=== PATIENT | male | born 1950 | race Caucasian/White ===

== ENCOUNTER 2018-08-27 19:16 | Emergency (ER) | payer MEDICARE ==
[2018-08-27] MEDS ORDERED: BABY ASPIRIN 81 MG CHEW PO ONE (19:30)
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
[2018-08-27] MEDS ORDERED: BABY ASPIRIN 81 MG CHEW ONE (19:37)
[2018-08-27 19:56] LABS: BASOPHIL % 0.7 % (0.0-0.4); Basophil (Absolute #) 0.09 (0-0.4); Eosinophil % 4.2 % (0.00-5.0); Eosinophil (Absolute #) 0.51 (0-0.5); Granulocyte Absolute (ANC) 7.36 (1.4-6.9); Granulocytes % 60.9 % (36.0-66.0); Hematocrit 38.7 % (42-50); Hemoglobin 12.5 gm/dl (12.5-18.0); Lymphocyte (Absolute #) 3.32 (1.0-4.6); Lymphocytes % 27.5 % (24.0-44.0); Mean Cell Volume 89.2 fl (78-100); Mean Corpuscular Hemoglobin 28.8 pg (26-32); Mean Corpuscular Hgb Concent. 32.3 g/dl (32-36); Mean Platelet Volume 9.7 fl (6-9.5); Monocyte (Absolute #) 0.81 (0.0-1.3); Monocytes % 6.7 % (0.0-12.0); Platelet Count 249 K/mm3 (150-450); Red Blood Count 4.34 M/mm3 (4.1-5.6); Red Cell Distribution Width 14.4 % (11.5-14.0); White Blood Count 12.1 K/mm3 (4.0-10.5)
[2018-08-27 20:02] LABS: ALBUMIN 4.1 g/dL (3.5-5.0); ALKALINE PHOSPHATASE 29 U/L (38-126); ANION GAP 14.8 MEQ/L (5-15); BLOOD UREA NITROGEN 17 mg/dL (9-20); CHLORIDE 101 mmol/L (98-107); Calcium 9.6 mg/dL (8.4-10.2); Carbon Dioxide 27 mmol/L (22-30); Glucose 101 mg/dL (74-106); Potassium 3.3 mmol/L (3.5-5.1); SGOT/AST 19 U/L (17-59); SGPT/ALT 15 U/L (0-50); SODIUM 139 mmol/L (137-145); Total Protein 6.6 g/dL (6.3-8.2)
[2018-08-27 20:03] LABS: AMYLASE 59 U/L (30-110); LIPASE 120 U/L (23-300)
[2018-08-27 21:30] LABS: Slide Review 1 YES
[2018-08-27 21:59] VITALS: PULSE 78
[2018-08-27 22:45] VITALS: BP 121/66
[2018-08-27 23:20] VITALS: O2SAT 97
--- NOTE | 2018-08-28 08:51 | XRAY ---
Indication: Chest pain. Comparison: June 26, 2017. Portable chest remains clear again with right perihilar calcified nodes. Heart and mediastinal structures within normal limits. Bony thorax intact again with osteopenia and degenerative changes. No new/acute findings. Impression: Stable nonacute chest with chronic features.
== END 2018-08-27 23:25 | disposition home or self-care (01) ==
LOC: ED 19:16
DX: E78.00 Pure hypercholesterolemia, unspecified (principal); I50.9 Heart failure, unspecified; E03.9 Hypothyroidism, unspecified; F41.9 Anxiety disorder, unspecified; Z79.899 Other long term (current) drug therapy
CPT/HCPCS: 36000; 36415; 71045; 80053; 82150; 83690; 84484; 85025; 85379; 93005; 93041; 99284; A9270-GY

== ENCOUNTER 2019-04-18 13:28 | Observation (INO) | payer MEDICARE ==
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
[2019-04-18] MEDS ORDERED: MOTRIN 600 MG PO STA (13:36)
[2019-04-18] MEDS ORDERED: Sodium Chloride 0.9% 1000 ML 1,000 ML IV STA ×2 (13:36→15:24)
[2019-04-18] MEDS ORDERED: Zofran 4 MG/2 ML VIAL IV STA (13:36)
[2019-04-18] MEDS ORDERED: TYLENOL 325 MG PO STA (13:36)
[2019-04-18] MEDS ORDERED: Zofran 4 MG/2 ML VIAL ONE (13:42)
[2019-04-18] MEDS ORDERED: MOTRIN 600 MG ONE (13:42)
[2019-04-18] MEDS ORDERED: Sodium Chloride 0.9% 1000 ML 1,000 ML ONE ×3 (13:43→17:07)
[2019-04-18] MEDS ORDERED: TYLENOL 325 MG ONE (13:43)
--- NOTE | 2019-04-18 14:05 | XRAY ---
Indication: Fever and short of breath. Comparison: August 27, 2018. Portable chest remains clear. Heart is not enlarged again with right suprahilar calcified nodes. Bony thorax intact again with mild osteopenia and degenerative changes. Impression: Stable nonacute chest with chronic features.
[2019-04-18 14:59] LABS: Hematocrit 44.3 % (42-50); Hemoglobin 14.5 gm/dl (12.5-18.0); Mean Cell Volume 87.4 fl (78-100); Mean Corpuscular Hemoglobin 28.6 pg (26-32); Mean Corpuscular Hgb Concent. 32.7 g/dl (32-36); Mean Platelet Volume 9.3 fl (6-9.5); Platelet Count 434 K/mm3 (150-450); Red Blood Count 5.07 M/mm3 (4.1-5.6); Red Cell Distribution Width 14.9 % (11.5-14.0); White Blood Count 20.4 K/mm3 (4.0-10.5)
[2019-04-18 15:10] LABS: ALBUMIN 4.8 g/dL (3.5-5.0); ANION GAP 17.3 MEQ/L (5-15); BILIRUBIN,TOTAL 0.8 mg/dL (0.2-1.3); Calcium 10.2 mg/dL (8.4-10.2); Creatinine 1 1.36 mg/dL (0.66-1.25); Potassium 3.2 mmol/L (3.5-5.1); Total Protein 8.2 g/dL (6.3-8.2)
[2019-04-18 15:26] LABS: Group A Strep NEGATIVE (NEGATIVE); INFLUENZA A NEGATIVE (NEGATIVE); INFLUENZA B NEGATIVE (NEGATIVE); RESPIRATORY SYNCTIAL VIRUS NEGATIVE (Negative)
[2019-04-18 15:36] LABS: BAND 2 % (0.0-2.0); Lymphocytes 9 % (24-44); Monocyte 2 % (0.0-12.0); Neutrophils 87 % (36.-66.); Total Cells Counted 100
[2019-04-18 15:37] LABS: Platelet Estimate NORMAL (NORMAL)
--- NOTE | 2019-04-18 16:45 | XRAY ---
Indication: Low back pain, fever, chills, and nausea. Multiple contiguous axial images obtained through abdomen and pelvis without contrast as ordered. Comparison: None Lung bases demonstrates 3 incompletely visualized right lower lobe subcentimeter nodules similar in appearance to CT chest August 29, 2018. Minimal bilateral fibrosis/scarring. No infiltrate or effusion. Heart is not enlarged. New 4.2 x 2.0 cm right epicardiac soft tissue mass. Noncontrasted stomach and bowel loops appear nonobstructed. Terminal ileum and ileocecal junction demonstrates bowel wall thickening with stranding favoring Crohn's. Adjacent small subcentimeter mesenteric nodes with minimal stranding presumed reactive. Normal appendix. No free fluid/air. Mild scattered colonic diverticulosis, greatest in the descending and sigmoid colon. Previous cholecystectomy. Hepatic/splenic calcified granulomas. Remaining liver, pancreas, spleen, adrenal glands, kidneys, ureters, and bladder appear unremarkable for noncontrast exam. Scattered aortoiliac calcifications without AAA. Osseous structures demonstrates mild degenerative changes throughout the thoracolumbar spine and both hips. Indeterminant 1 cm round L5 sclerotic lesion. Small fatty left inguinal hernia. Impression: 1. Terminal ileum and ileocecal bowel wall thickening with stranding favoring Crohn's disease. Adjacent small reactive mesenteric nodes. 2. Colonic diverticulosis, small fatty left inguinal hernia, and evidence for old granulomatous disease. 3. Indeterminant L5 sclerotic lesion. Finding could represent bone island but cannot completely exclude osteoblastic malignancy in the right clinical setting. 4. Stable right lower lobe noncalcified micronodules with respect to CT chest August 29, 2018 but new 4.2 x 2.0 cm right epicardiac soft tissue mass. CTDI 32.84
[2019-04-18] MEDS ORDERED: Hydromorphone 1 mg/ml Ampule IV ONE (17:10)
[2019-04-18] MEDS ORDERED: Levofloxacin 500MG/100ML D5W 500 MG/100 ML BAG IV STA (17:11)
[2019-04-18] MEDS ORDERED: Hydromorphone 1 mg/ml Ampule ONE (17:13)
[2019-04-18] MEDS: Sodium Chloride 0.9% 1000 ML 1,000 ML IV SCH (17:14)
[2019-04-18 17:19] LABS: Appearance CLOUDY (CLEAR); Bacteria RARE /HPF (NEGATIVE); Bilirubin NEGATIVE (NEGATIVE); Blood MODERATE Ery/ul (0-5); Epithelial Cells RARE /HPF (FEW); Glucose NEGATIVE (NEGATIVE); Ketones NEGATIVE (NEGATIVE); Leukocyte Esterase TRACE (NEGATIVE); Mucus SLIGHT /HPF (NEGATIVE); Nitrite NEGATIVE (NEGATIVE); Protein,Urine Dip 30 (Negative); Urobilinogen NEGATIVE mg/dL (0-1)
[2019-04-18] MEDS ORDERED: Levofloxacin 500MG/100ML D5W 500 MG/100 ML BAG IV ONE (17:19)
[2019-04-18] MEDS ORDERED: Zofran 4 MG/2 ML VIAL IV PRN (17:43)
[2019-04-18] MEDS: FLAGYL 500 MG IVPB 500 MG/100 ML BAG IV SCH (20:09)
[2019-04-18] MEDS: DILAUDID 2 MG INJECTION IV PRN (21:32)
[2019-04-19] MEDS: TYLENOL 325 MG PO PRN ×3 (00:56→20:09)
[2019-04-19] MEDS: FLAGYL 500 MG IVPB 500 MG/100 ML BAG IV SCH ×5 (01:19→23:18)
[2019-04-19] MEDS ORDERED: Sodium Chloride 0.9% 1000 ML 1,000 ML ONE (02:46)
[2019-04-19] MEDS: Sodium Chloride 0.9% 1000 ML 1,000 ML IV SCH ×2 (02:47→09:02)
[2019-04-19 05:10] LABS: Absolute Neutrophil Ct (ANC) 11.62 (1.4-6.9); BASOPHIL % 0.2 % (0.0-0.4); Basophil (Absolute #) 0.03 (0-0.4); Eosinophil % 0.1 % (0.00-5.0); Eosinophil (Absolute #) 0.01 (0-0.5); Hematocrit 36.6 % (42-50); Hemoglobin 11.6 gm/dl (12.5-18.0); Lymphocyte (Absolute #) 0.65 (1.0-4.6); Lymphocytes % 5.1 % (24.0-44.0); Mean Cell Volume 89.3 fl (78-100); Mean Corpuscular Hemoglobin 28.3 pg (26-32); Mean Corpuscular Hgb Concent. 31.7 g/dl (32-36); Mean Platelet Volume 8.3 fl (6-9.5); Monocyte (Absolute #) 0.36 (0.0-1.3); Monocytes % 2.8 % (0.0-12.0); Neutrophil % 91.8 % (36.0-66.0); Platelet Count 301 K/mm3 (150-450); Red Cell Distribution Width 14.9 % (11.5-14.0); White Blood Count 12.7 K/mm3 (4.0-10.5)
[2019-04-19 05:49] LABS: ALBUMIN 3.2 g/dL (3.5-5.0); ANION GAP 12.1 MEQ/L (5-15); BILIRUBIN,TOTAL 0.4 mg/dL (0.2-1.3); Calcium 8.4 mg/dL (8.4-10.2); Creatinine 1 1.26 mg/dL (0.66-1.25); Potassium 3.5 mmol/L (3.5-5.1); Total Protein 5.9 g/dL (6.3-8.2)
[2019-04-19] MEDS ORDERED: DILAUDID 2 MG INJECTION ONE (05:55)
[2019-04-19] MEDS: DILAUDID 2 MG INJECTION IV PRN ×3 (05:57→15:57)
[2019-04-19] MEDS ORDERED: IMODIUM 2 MG PO ONE (06:09)
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
[2019-04-19] MEDS: Sodium Chloride 0.9% W/ 20 mEq KCl/LITER 1,000 ML IV SCH ×2 (08:55→17:26)
[2019-04-19] MEDS: DELTASONE 5 MG PO SCH (08:56)
[2019-04-19] MEDS: SYNTHROID 50 MCG PO SCH (08:57)
[2019-04-19] MEDS: Pepcid 20 MG PO SCH (08:57)
[2019-04-19] MEDS: ECOTRIN 81 MG PO SCH (08:57)
[2019-04-19 09:58] LABS: Campylobacter POSITIVE (NEGATIVE)
[2019-04-19 10:00] LABS: Enteropathogenic E.coli POSITIVE (NEGATIVE)
[2019-04-19] MEDS ORDERED: NON-FORMULARY ITEM (Ranitidine Hcl [Zantac] 150 MG) PO SCH (10:00)
[2019-04-19] MEDS ORDERED: LEVOTHYROXINE SODIUM 50 MCG PO SCH (10:00)
[2019-04-19 10:01] LABS: Adenovirus F 40/41 NEGATIVE (NEGATIVE); Astrovirus NEGATIVE (NEGATIVE); C. Difficile Organism NEGATIVE (NEGATIVE); Cryptosporidium NEGATIVE (NEGATIVE); Cyclospora cayentanensis NEGATIVE (NEGATIVE); Enterotoxigenic E.coli NEGATIVE (NEGATIVE); Giardia lamblia NEGATIVE (NEGATIVE); Norovirus GI/GII NEGATIVE (NEGATIVE); Plesiomonas shigelloides NEGATIVE (NEGATIVE); Rotavirus A NEGATIVE (NEGATIVE); Salmonella NEGATIVE (NEGATIVE); Sapovirus NEGATIVE (NEGATIVE); Shiga-like toxin prod.E.coli NEGATIVE (NEGATIVE); Vibrio NEGATIVE (NEGATIVE); Vibrio cholerae NEGATIVE (NEGATIVE); Yersinia enterocolitica NEGATIVE (NEGATIVE)
[2019-04-19 10:02] LABS: Entamoeaba histolytica NEGATIVE (NEGATIVE)
[2019-04-19] MEDS: Zithromax 500 MG/ 250 ML NaCl Premix 500 MG/250 ML IVPB IV SCH (12:17)
[2019-04-19] MEDS: IMODIUM 2 MG PO PRN (15:57)
[2019-04-19] MEDS ORDERED: Levofloxacin 500MG/100ML D5W 500 MG/100 ML BAG IV SCH (18:00)
[2019-04-20] MEDS: TYLENOL 325 MG PO PRN (01:10)
[2019-04-20] MEDS: Sodium Chloride 0.9% W/ 20 mEq KCl/LITER 1,000 ML IV SCH ×2 (01:25→03:43)
[2019-04-20] MEDS: FLAGYL 500 MG IVPB 500 MG/100 ML BAG IV SCH ×3 (06:02→18:11)
[2019-04-20 06:20] LABS: BASOPHIL % 0.4 % (0.0-0.4); Basophil (Absolute #) 0.04 (0-0.4); Eosinophil % 1.6 % (0.00-5.0); Eosinophil (Absolute #) 0.17 (0-0.5); Hematocrit 35.6 % (42-50); Hemoglobin 11.3 gm/dl (12.5-18.0); Lymphocyte (Absolute #) 1.16 (1.0-4.6); Lymphocytes % 11.2 % (24.0-44.0); Mean Cell Volume 89.2 fl (78-100); Mean Corpuscular Hemoglobin 28.3 pg (26-32); Mean Corpuscular Hgb Concent. 31.7 g/dl (32-36); Mean Platelet Volume 8.2 fl (6-9.5); Monocyte (Absolute #) 0.49 (0.0-1.3); Monocytes % 4.7 % (0.0-12.0); Neutrophil % 82.1 % (36.0-66.0); Platelet Count 255 K/mm3 (150-450); Red Blood Count 3.99 M/mm3 (4.1-5.6); Red Cell Distribution Width 14.7 % (11.5-14.0); White Blood Count 10.4 K/mm3 (4.0-10.5)
[2019-04-20 08:19] LABS: ALBUMIN 3.2 g/dL (3.5-5.0); ALKALINE PHOSPHATASE 31 U/L (38-126); ANION GAP 11.3 MEQ/L (5-15); BLOOD UREA NITROGEN 7 mg/dL (9-20); CHLORIDE 106 mmol/L (98-107); Calcium 8.3 mg/dL (8.4-10.2); Carbon Dioxide 23 mmol/L (22-30); Creatinine 1 0.76 mg/dL (0.66-1.25); Glucose 78 mg/dL (74-106); MAGNESIUM 1.8 mg/dL (1.6-2.3); Potassium 3.7 mmol/L (3.5-5.1); SGOT/AST 43 U/L (17-59); SGPT/ALT 23 U/L (0-50); SODIUM 136 mmol/L (137-145); Total Protein 5.6 g/dL (6.3-8.2)
[2019-04-20] MEDS: DILAUDID 2 MG INJECTION IV PRN ×2 (09:30→14:14)
[2019-04-20] MEDS: ECOTRIN 81 MG PO SCH (09:31)
[2019-04-20] MEDS: Zithromax 500 MG/ 250 ML NaCl Premix 500 MG/250 ML IVPB IV SCH (09:31)
[2019-04-20] MEDS: Pepcid 20 MG PO SCH (09:31)
[2019-04-20] MEDS: DELTASONE 5 MG PO SCH (09:31)
[2019-04-20] MEDS: SYNTHROID 50 MCG PO SCH (09:31)
[2019-04-20] MEDS ORDERED: LASIX 20 MG PO ONE (17:00)
[2019-04-20] MEDS: IMODIUM 2 MG PO PRN ×2 (18:13→21:10)
[2019-04-20] MEDS: Acidophilus TABLET PO SCH (20:25)
[2019-04-20] MEDS ORDERED: NEURONTIN 300 MG PO SCH (22:00)
[2019-04-21] MEDS: FLAGYL 500 MG IVPB 500 MG/100 ML BAG IV SCH ×3 (00:07→11:52)
[2019-04-21] MEDS: Sodium Chloride 0.9% W/ 20 mEq KCl/LITER 1,000 ML IV SCH (05:29)
[2019-04-21] MEDS: IMODIUM 2 MG PO PRN (06:50)
[2019-04-21] MEDS: DELTASONE 5 MG PO SCH (10:28)
[2019-04-21] MEDS: Acidophilus TABLET PO SCH (10:28)
[2019-04-21] MEDS: ECOTRIN 81 MG PO SCH (10:29)
[2019-04-21] MEDS: Zithromax 500 MG/ 250 ML NaCl Premix 500 MG/250 ML IVPB IV SCH (10:29)
[2019-04-21] MEDS: Pepcid 20 MG PO SCH (10:29)
[2019-04-21] MEDS: SYNTHROID 50 MCG PO SCH (10:29)
[2019-04-21] MEDS ORDERED: Lasix 40 MG/4 ML IV ONE (12:15)
[2019-04-21] MEDS ORDERED: Klor Con 10 MEQ PO ONE (12:16)
--- NOTE | 2019-04-21 16:50 | PCM.NOTE ---
Date and Time: 04/20/19 1500 Subjective Assessment: Patient is feeling some better but bowels are still loose and green .C/O feeling swollen and like cannot take a deep breath. Has been off his Lasix due to diarrhea. OBJECTIVE DATA Vital Signs: Vital Signs - 24 hr Temp Pulse Resp BP Pulse Ox 04/21/19 12:00 97.7 F 75 18 135/76 97 04/21/19 08:00 97.5 F 65 18 145/71 97 04/21/19 04:00 98.2 F 64 20 96/54 96 04/21/19 00:10 98.6 F 79 20 115/64 99 04/20/19 20:00 98.5 F 76 22 117/62 98 Pain Assessment - Last Documented Pain Intensity 2 Pain Scale Used 0-10 Pain Scale Intake and Output: Intake & Output 04/19/19 04/20/19 04/21/19 04/22/19 11:59 11:59 11:59 11:59 Intake Total 203 5005 5386 1031 Output Total 3880 500 5232 4052 [facility] [phone] Weight 124.6 kg 124.8 kg 122.1 kg
--- NOTE | 2019-04-21 16:54 | PCM.DS ---
Discharge Summary Date of Admission: 04/18/19 17:38 Admitting Physician: ELA MERRILL Primary Care Provider: ELA MERRILL Allergies Allergies No Known Drug Allergies Allergy (Verified 04/18/19 13:31) Hospital Summary - Hospital Course Hospital Course: Patient was admitted to [facility] with volume depletion from diarrhea with GI panel showing positive for Camplobacter and EPEC. He was treated with IV Flagyl and IV Zithromax . - Vitals & Intake/Output Vital Signs: Vital Signs Temperature 97.7 F 04/21/19 12:00 Pulse Rate 75 04/21/19 12:00 Respiratory Rate 18 04/21/19 12:00 Blood Pressure 135/76 04/21/19 12:00 O2 Sat by Pulse Oximetry 97 04/21/19 12:00 Intake & Output: Intake & Output 04/19/19 04/20/19 04/21/19 04/22/19 11:59 11:59 11:59 11:59 Intake Total 2036 5008 5386 1031 Output Total 2550 500 8075 4050 Balance -[phone] Weight 124.6 kg 124.8 kg 122.1 kg - Lab Result Diagrams: 04/20/19 06:10 04/20/19 06:10 Micro Results-Entire Visit: Microbiology 04/18/19 14:25 Blood Culture - Preliminary Blood NO GROWTH TO DATE 04/18/19 17:11 Urine Culture - Final Urine, Void NO GROWTH - Discharge Disposition: Home, Self-Care Condition: Stable Prescriptions: New Gabapentin 300 mg PO HS #30 capsule Loperamide HCl 2 mg [Imodium 2 mg] 2 mg PO PRN PRN #0 capsule PRN Reason: Diarrhea Continue Potassium Chloride 20 Meq [Klor-Con 20 MEQ] 20 mg BID Furosemide 40 mg BID Simvastatin 40 mg [Zocor 40 mg] 40 mg PO DAILY Levothyroxine Sodium 50 mcg PO DAILY Fenofibrate 160 mg PO DAILY Prednisone 5 mg [Deltasone 5 mg] 5 mg PO DAILY #30 tablet raNITIdine HCl [Zantac] 150 mg PO DAILY Folic Acid 0.8 mg PO DAILY Calcium Carbonate/Vitamin D3 [Vitamin D-3 400 Units Tablet] 125 mcg PO DAILY Aspirin 81 mg PO DAILY Follow up with: ELA MERRILL MD [Primary Care Provider] - 1 Week
[2019-04-21 17:26] VITALS: BP 135/63; PULSE 70; O2SAT 95
== END 2019-04-21 17:35 | disposition home or self-care (01) ==
LOC: ED 13:28 → MED SURG 17:38
PROVIDERS: ADMIT Family Medicine; ATTEND Family Medicine
DX: E86.0 Dehydration (principal); K52.9 Noninfective gastroenteritis and colitis, unspecified; E78.00 Pure hypercholesterolemia, unspecified; E03.9 Hypothyroidism, unspecified; Z79.899 Other long term (current) drug therapy
CPT/HCPCS: 36415; 51702; 71045; 74176; 80053; 81001; 83605; 83735; 85025; 86308; 87040; 87086; 87507; 87631; 87651; 93041; 94760; 96360; 96361; 96365; 96374; 96375; 99285; G0378; J0456; J1170; J1940; J1956; J2405; A9270-GY

== ENCOUNTER 2019-10-07 02:55 | Emergency (ER) | payer MEDICARE ==
[2019-10-07 03:23] LABS: Absolute Neutrophil Ct (ANC) 9.88 (1.4-6.9); BASOPHIL % 0.5 % (0.0-0.4); Basophil (Absolute #) 0.07 (0-0.4); Eosinophil % 1.4 % (0.00-5.0); Hematocrit 40.6 % (42-50); Hemoglobin 13.3 gm/dl (12.5-18.0); Lymphocyte (Absolute #) 2.91 (1.0-4.6); Lymphocytes % 20.9 % (24.0-44.0); Mean Cell Volume 87.1 fl (78-100); Mean Corpuscular Hemoglobin 28.5 pg (26-32); Mean Corpuscular Hgb Concent. 32.8 g/dl (32-36); Mean Platelet Volume 8.6 fl (7.5-11.0); Monocyte (Absolute #) 0.86 (0.0-1.3); Monocytes % 6.2 % (0.0-12.0); Platelet Count 425 K/mm3 (150-450); Red Blood Count 4.66 M/mm3 (4.1-5.6); Red Cell Distribution Width 14.3 % (11.5-14.0); White Blood Count 13.9 K/mm3 (4.0-10.5)
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
[2019-10-07 03:42] LABS: ALBUMIN 4.5 g/dL (3.5-5.0); ALKALINE PHOSPHATASE 27 U/L (38-126); ANION GAP 13.6 MEQ/L (5-15); BLOOD UREA NITROGEN 14 mg/dL (9-20); CHLORIDE 95 mmol/L (98-107); Calcium 9.4 mg/dL (8.4-10.2); Carbon Dioxide 30 mmol/L (22-30); Creatinine 1 0.87 mg/dL (0.66-1.25); Glucose 87 mg/dL (74-106); MAGNESIUM 2.1 mg/dL (1.6-2.3); NT PRO BNP 57.5 pg/mL (0-900); Potassium 3.9 mmol/L (3.5-5.1); SGOT/AST 41 U/L (17-59); SGPT/ALT 17 U/L (0-50); SODIUM 135 mmol/L (137-145); Total Protein 7.5 g/dL (6.3-8.2)
[2019-10-07 03:45] LABS: Appearance CLEAR (CLEAR); Bilirubin NEGATIVE (NEGATIVE); Blood MODERATE Ery/ul (0-5); Glucose NEGATIVE (NEGATIVE); Ketones NEGATIVE (NEGATIVE); Leukocyte Esterase NEGATIVE (NEGATIVE); Nitrite NEGATIVE (NEGATIVE); Protein,Urine Dip NEGATIVE (Negative); RBC 0-2 /HPF (0-2); Specific Gravity 1.004 (1.005-1.025); Urobilinogen NEGATIVE mg/dL (0-1)
[2019-10-07 06:27] VITALS: BP 139/70; PULSE 62; O2SAT 96
--- NOTE | 2019-10-07 09:22 | XRAY ---
Indication: Short of breath. Comparison: September 17, 2019. Portable chest again demonstrates normal heart and lungs with right hilar calcified nodes, osteopenia, and mild bony degenerative changes. No new/acute findings. Comment: Preliminary interpretation was made by [facility]. No critical discrepancy.
== END 2019-10-07 06:27 | disposition home or self-care (01) ==
LOC: ED 02:55
DX: R06.01 Orthopnea (principal); R06.02 Shortness of breath; R00.1 Bradycardia, unspecified; I50.9 Heart failure, unspecified; E78.00 Pure hypercholesterolemia, unspecified; E03.9 Hypothyroidism, unspecified; F41.9 Anxiety disorder, unspecified
CPT/HCPCS: 36000; 36415; 71045; 80053; 81001; 83735; 83880; 84484; 85025; 93005; 93041; 94760; 99284